=== PATIENT | male | born 1975 | race Caucasian/White ===

== ENCOUNTER 2023-08-04 05:38 | Emergency (ER) | payer OTHER ==
[~2023-08-04] VITALS: Ht 175.3 cm; Wt 89.3 kg
[2023-08-04 06:29] VITALS: TEMP 97.9
[2023-08-04 11:00] VITALS: BP 130/78; PULSE 65; RESP 12
== END 2023-08-04 11:07 | disposition home or self-care (01) ==
LOC: EMS 05:38 → EDBD 05:38 → EMS 11:07
DX: T40.1X1A Poisoning by heroin, accidental (unintentional), initial encounter (principal); F17.210 Nicotine dependence, cigarettes, uncomplicated; Y92.89 Other specified places as the place of occurrence of the external cause
CPT/HCPCS: 99284; Z7502

== ENCOUNTER 2025-05-23 21:56 | Emergency (ER) | payer OTHER ==
[~2025-05-23] VITALS: Ht 165.1 cm; Wt 59.1 kg
[2025-05-23 22:34] VITALS: TEMP 97.7
[2025-05-24] MEDS: HYDROCODONE/ACETAMINOPHEN 10-325 MG TABLET PO ONE (00:23)
[2025-05-24] MEDS ORDERED: HYDR-4072 PO (03:22)
[2025-05-24] MEDS ORDERED: IBUP-1492 PO (03:22)
[2025-05-24 04:10] VITALS: BP 143/89; PULSE 71; RESP 16; O2SAT 99
== END 2025-05-24 04:42 | disposition home or self-care (01) ==
LOC: EMS 21:58
DX: S22.41XA Multiple fractures of ribs, right side, initial encounter for closed fracture (principal); S93.401A Sprain of unspecified ligament of right ankle, initial encounter; S43.401A Unspecified sprain of right shoulder joint, initial encounter; I10 Essential (primary) hypertension; F17.210 Nicotine dependence, cigarettes, uncomplicated; X58.XXXA Exposure to other specified factors, initial encounter; Y93.89 Activity, other specified; Y92.89 Other specified places as the place of occurrence of the external cause; Y99.8 Other external cause status
CPT/HCPCS: 71045; 71250; 72192; 74150; 99284